=== PATIENT | female | born 1930 | race Caucasian/White ===

== ENCOUNTER 2016-07-13 07:42 | Emergency (ER) | payer OTHER ==
[2016-07-13] MEDS ORDERED: ZOFRAN ODT PO ONE (08:09)
--- NOTE | 2016-07-13 08:22 | PROVIDER DOCUMENTATION ---
HPI-Female /OB/Breast - General Source: reports: patient, family <Henrry Dominguez - Last Filed: 07/13/16 08:20> - General Source: reports: patient - History of Present Illness-Female /OB Location of complaint: reports: right flank Onset/Duration: reports: abrupt Timing: reports: still present <Aubree Juarez - Last Filed: 07/13/16 11:24> - General Chief Complaint: Flank Pain Stated Complaint: rt flank pain Time Seen by Provider: 07/13/16 08:03 Allergies/Adverse Reactions: Patient Allergies Allergy/AdvReac Type Severity Reaction Status Date / Time ketorolac tromethamine * Allergy RASH Verified 06/08/15 11:46 [From Toradol] levofloxacin [From Levaquin] Allergy RASH Verified 06/08/15 11:46 methylprednisolone acetate * Allergy RASH Verified 06/08/15 11:46 [From Depo-Medrol] sulfamethoxazole Allergy RASH Verified 06/08/15 11:46 [From Bactrim] trimethoprim [From Bactrim] Allergy RASH Verified 06/08/15 11:46 - History of Present Illness-Female /OB Nature of Presenting Problem: Pt awoke in the night with right flank pain. She has been told that she has kidney stones but they are in the other kidney. She has had T&A, appe, lysis of adhesions, right total hip, and GERD surgery (Henrry Dominguez) Review of Systems - Adult - REVIEW OF SYSTEMS - ADULT Constitutional: denies: chills, fever Eyes: denies: discharge, blurred vision Ears, Nose, Mouth & Throat: denies: ear pain, sinus problem, nose pain Cardiovascular: denies: chest pain, heart murmur, syncope Respiratory: denies: chronic cough, cough, hemoptysis, shortness of breath Gastrointestinal: denies: abdominal pain, diarrhea, nausea, vomiting Genitourinary: denies: discharge, flank pain Musculoskeletal: denies: bone pain, frequent leg cramps, neck pain Integumentary: denies: itching, mole changes, rash Neurological: denies: dizziness/vertigo, loss of balance, numbness Psychiatric: denies: emotional problems Endocrine: denies: goiter, cold intolerance, heat intolerance Hematologic/Lymphatic: denies: low blood count, lymphedema Allergic/Immunologic: denies: food allergy, frequent infections, hives <Henrry Dominguez - Last Filed: 07/13/16 08:20> - REVIEW OF SYSTEMS - ADULT Constitutional: reports: no symptoms reported. denies: chills, fever Eyes: reports: no symptoms reported. denies: discharge, blurred vision Ears, Nose, Mouth & Throat: reports: no symptoms reported. denies: ear discharge, nose pain Cardiovascular: reports: no symptoms reported. denies: chest pain, heart murmur Respiratory: reports: no symptoms reported. denies: cough, hemoptysis Gastrointestinal: reports: no symptoms reported. denies: constipation, diarrhea Genitourinary: reports: flank pain Musculoskeletal: reports: no symptoms reported. denies: bone pain, frequent leg cramps Integumentary: reports: no symptoms reported. denies: hives, itching Neurological: reports: no symptoms reported. denies: ataxia, dizziness/vertigo Psychiatric: reports: no symptoms reported. denies: anxiety, anti-depressant use Endocrine: reports: no symptoms reported. denies: cold intolerance, heat intolerance Hematologic/Lymphatic: reports: no symptoms reported. denies: blood clots, easy bruising Allergic/Immunologic: reports: no symptoms reported. denies: allergic reactions , eczema All Other Systems: Reviewed and Negative <Aubree Juarez - Last Filed: 07/13/16 11:24> Past History - Adult - PAST MEDICAL HISTORY-ADULT Major Childhood Illnesses: reports: denies history Gastrointestinal: reports: GERD - PRIOR SURGERIES/PROCEDURES Surgical/Procedure History: reports: appendectomy, hysterectomy, tonsillectomy, orthopedic (extremity) - IMMUNIZATION STATUS Flu Vaccine: See Nurse Assessment <Henrry Dominguez - Last Filed: 07/13/16 08:20> - PAST MEDICAL HISTORY-ADULT Review of Records: reports: Old Records Reviewed, Nursing Assessment Review, Medications Reviewed - IMMUNIZATION STATUS Childhood Immunizations: See Nurse Assessment Flu Vaccine: See Nurse Assessment <Aubree Juarez - Last Filed: 07/13/16 11:24> Physical Exam-General - PHYSICAL EXAM-ADULT Initial Vital Signs Reviewed: Yes - CONSTITUTIONAL General Appearance: appears well, alert, no apparent distress - EYES Eyes: PERRL/EOMI, pink conjunctivae - HEAD, EARS, NOSE, MOUTH & THROAT HENMT: normocephalic/atraumatic, moist mucous membranes - NECK Neck: non-tender, full range of motion - RESPIRATORY Respiratory: chest non-tender, normal breath sounds - CARDIOVASCULAR Cardiovascular: normal peripheral pulses, regular rate, rhythm - GASTROINTESTINAL (ABDOMEN) Abdominal Exam: non tender, soft - GENITOURINARY Female Genitalia/Pelvic Exam: deferred Rectal Exam: deferred - LYMPHATIC Lymphatic: no adenopathy - MUSCULOSKELETAL Back Exam: normal inspection, no vertebral tenderness Extremity: normal range of motion, non-tender - SKIN Integumentary: normal color, normal turgor - NEUROLOGIC Neurologic: grossly normal, no motor/sensory deficits - PSYCHIATRIC Psych/Mental Status: normal mood/affect, normal thought content, normal thought process <Aubree Juarez - Last Filed: 07/13/16 11:24> Progress <Henrry Dominguez - Last Filed: 07/13/16 08:20> <Aubree Juarez - Last Filed: 07/13/16 11:24> - PLAN OF CARE/RESULTS Progress/Plan/Lab Results: Vital Signs - 24 hr 07/13/16 07:44 Temperature 97.7 F Pulse Rate 69 Respiratory 18 Rate Blood Pressure 154/59 O2 Sat by Pulse 98 Oximetry Orders Category Date Time Status ABDOMEN/PELVIS W/O CONTRAST [CT] Stat Exams 07/13/16 09:24 Draft CBC WITH ELECTRONIC DIFF [HEME] Stat Lab 07/13/16 08:31 Completed CMP [COMPREHENSIVE METABOLIC PANEL] [CHEM] Stat Lab 07/13/16 08:31 Completed INFLUENZA SCREEN A/B Stat Lab 07/13/16 08:37 Completed UA NIMS W/REFLEX CULT [URINALYSIS] Stat Lab 07/13/16 08:31 Completed URINE CULTURE [RM] Routine Lab 07/13/16 09:24 Received 0.9% Sodium Chloride Inj [Ns] 1,000 ml Med 07/13/16 11:08 Active IV 999 mls/hr 0.9% Sodium Chloride Inj [Ns] 1,000 ml Med 07/13/16 11:10 Discontinued IV 999 mls/hr Hydromorphone [Dilaudid] Med 07/13/16 09:23 Discontinued 1 mg IV NOW ONE Ondansetron Odt [Zofran Odt] Med 07/13/16 08:09 Discontinued 4 mg PO NOW ONE Tamsulosin [Flomax] Med 07/13/16 11:08 Discontinued 0.4 mg PO NOW ONE Tamsulosin [Flomax] Med 07/13/16 11:09 Discontinued 0.4 mg PO NOW ONE Laboratory Tests 07/13/16 07/13/16 07/13/16 08:31 08:31 08:31 WBC 9.03 RBC 3.95 L Hgb 12.8 Hct 38.8 MCV 98.2 MCH 32.4 H MCHC 33.0 RDW Std Deviation 12.9 Plt Count 184 MPV 12.1 H Immature Gran % (Auto) 0.0 Neut % (Auto) 89.9 H Lymph % (Auto) 7.2 L [place] % (Auto) 2.8 Eos % (Auto) 0.0 Baso % (Auto) 0.1 Immature Gran # (Auto) 0.00 Neut # (Auto) 8.12 H Lymph # (Auto) 0.65 L [place] # (Auto) 0.25 Eos # (Auto) 0.00 Baso # (Auto) 0.01 Segmented Neutrophils Cancelled Band Neutrophils Cancelled Lymphocytes Cancelled Monocytes Cancelled Eosinophils Cancelled Basophils Cancelled Metamyelocytes Cancelled Myelocytes Cancelled Promyelocytes Cancelled Nucleated RBCs Cancelled Atypical Lymphocytes Cancelled Blast Cells Cancelled Hypochromia Cancelled Vacuolization Cancelled Toxic Granulation Cancelled Dohle Bodies Cancelled Large Platelets Cancelled Polychromasia Cancelled Poikilocytosis Cancelled Basophilic Stippling Cancelled Anisocytosis Cancelled Microcytosis Cancelled Macrocytosis Cancelled Spherocytes Cancelled Sickle Cells Cancelled Target Cells Cancelled Ovalocytes Cancelled Stomatocytes Cancelled [place] Bodies Cancelled [place] Cells Cancelled Unidentified Cells Cancelled Schistocytes Cancelled Sodium 142 Potassium 4.4 Chloride 106 Carbon Dioxide 24 L Anion Gap 12 BUN 10 Creatinine 0.7 Estimated GFR/1.73 m2 > 60 BUN/Creatinine Ratio 14 Glucose 135 H Calculated Osmolality 284 Calcium 10.0 Total Bilirubin 0.53 AST 14 ALT 13 Alkaline Phosphatase 101 Total Protein 7.2 Albumin 4.4 Globulin 2.8 Albumin/Globulin Ratio 1.6 Urine Source CATH Urine Color YELLOW Urine Turbidity CLEAR Urine pH 7.0 Ur Specific [place] 1.015 Urine Protein NEGATIVE Ur Glucose (Stick) NEGATIVE Ur Ketones (Stick) NEGATIVE Urine Blood SMALL A Urine Nitrite NEGATIVE Urine Bilirubin NEGATIVE Urobilinogen Dipstick NORMAL Urine Leukocytes SMALL A Urine WBC (Auto) 10-20 A Urine RBC (Auto) <10 U Epithel Cells (Auto) <10 Urine Bacteria (Auto) 2+ (Aubree Juarez) Departure <Henrry Dominugez - Last Filed: 07/13/16 08:20> - Departure Time of Disposition Order: 11:19 Certified Medical Emergency: Emergent <Aubree Juarez - Last Filed: 07/13/16 11:24> - Departure DIAGNOSIS: Kidney stone on right side Disposition: HOME 01 Condition: Good Additional Instructions: Follow up with your urologist today via phone to alert to new stone. Follow urologist's instructions moving forward. ED Follow Up Instructions: You have been treated by a care provider in the Emergency Department. These instructions are being provided to you so you can have an understanding of how to care for yourself upon discharge. Upon discharge from the Emergency Department, you are responsible for making arrangements for follow-up care by a physician of your choice. Take all prescribed medications as directed. Return to the Emergency Department immediately for any new or worsening symptoms. You may call the Physician Referral phone number at [phone] to obtain a list of Physicians who are taking new patients. Attestation - Scribe Verification/Attestation Scribe:: Aubree Juarez Acting as Scribe for:: Henrry Dominguez Scribe documention review:: This chart was documented by a scribe and accurately reflects the service the provider performed and the decisions made by the provider. - Physician/ Mid-level Attestation Patient care was provided by Mid-level provider (VIDEO TAPE DUPLICATOR/PA):: No <Aubree Juarez - Last Filed: 07/13/16 11:24> Physician Attestation
[2016-07-13 08:44] LABS: URINE MICRO REVIEW NEEDED? NO; URINE SOURCE CATH
[2016-07-13 08:54] LABS: BASO% 0.1 % (0.0-0.8); BILIRUBIN URINE NEGATIVE (NEGATIVE); BLOOD URINE SMALL (NEGATIVE); COLOR YELLOW; GLUCOSE URINE NEGATIVE (NEGATIVE); HEMATOCRIT 38.8 % (37.0-47.0); HEMOGLOBIN 12.8 g/dL (12.0-16.0); LEUKOCYTES URINE SMALL (NEGATIVE); LYMPH# 0.65 X1000 (1.2-3.4); LYMPH% 7.2 % (20.5-51.1); MCH 32.4 PG (27-31); MCV 98.2 FL (81-99); MONO# 0.25 X1000 (0.11-0.59); MONO% 2.8 % (1.7-9.3); MPV 12.1 FL (7.4-10.4); NEUT% 89.9 % (42.2-75.2); NITRITE URINE NEGATIVE (NEGATIVE); PLT 184 X1000 (130-400); PROTEIN URINE NEGATIVE (NEGATIVE); RBC 3.95 XMIL (4.2-5.4); SP GRAVITY URINE 1.015; TURBIDITY URINE CLEAR (CLEAR); UROBILINOGEN URINE NORMAL (NORMAL)
[2016-07-13 08:55] LABS: UR EPITHELIAL CELLS <10 /HPF (<10); URINE BACTERIA 2+ /HPF; URINE CULTURE NEEDED? YES; URINE RBC <10 /HPF (<10)
[2016-07-13 09:00] LABS: MANUAL DIFF NEEDED? NO
[2016-07-13 09:10] LABS: AGAP 12; ALBUMIN 4.4 g/dL (3.5-5.0); ALKALINE PHOSPHATASE 101 U/L (32-104); BUN 10 mg/dL (8-22); CHLORIDE 106 mmol/L (98-107); COSMO 284; GOT 14 U/L (10-30); GPT 13 U/L (10-36); POTASSIUM 4.4 mmol/L (3.5-5.1); SODIUM 142 mmol/L (136-145); TCO2 24 mmol/L (25-35); TOTAL BILIRUBIN 0.53 mg/dL (0.20-1.00); TOTAL PROTEIN 7.2 g/dL (6.3-8.3)
[2016-07-13] MEDS ORDERED: DILAUDID IV ONE (09:23)
--- NOTE | 2016-07-13 10:16 | Diag Imaging Result Document ---
PROCEDURE NAME: ABDOMEN/PELVIS W/O CONTRAST - 07/13/2016 CT ABDOMEN AND PELVIS: COMPARISON: 02/20/2015. FINDINGS: There is an obstructing right UVJ stone. This measures 6.2 x 3.5 mm. There is moderate right hydroureteronephrosis. There is a hyperdense cyst in the right renal midpole similar to prior. No bowel obstruction or inflammation. There is severe diverticulosis of the descending and sigmoid colon. Urinary bladder, uterus, and rectum are normal. The lung bases are grossly clear and the heart size is normal. Mild compression fracture of L3 is stable from prior. No acute bony lesions. IMPRESSION: 1. Obstructing right UVJ stone with moderate hydroureteronephrosis. 2. Severe diverticulosis coli.
[2016-07-13] MEDS ORDERED: FLOMAX PO ONE ×2 (11:08→11:09)
[2016-07-13] MEDS ORDERED: NS 1,000 ML IV ONE ×2 (11:08→11:10)
[2016-07-13 11:52] VITALS: BP 137/86
== END 2016-07-13 11:51 | disposition home or self-care (01) ==
LOC: ED 07:42
DX: N20.0 Calculus of kidney (principal); R10.9 Unspecified abdominal pain; Z79.899 Other long term (current) drug therapy; Z79.82 Long term (current) use of aspirin
CPT/HCPCS: 74176; 80053; 81001; 85025; 87077; 87088; 87186; 87804; 96374; J1170; J7030